=== PATIENT | female | born 1990 | race Caucasian/White ===

== ENCOUNTER 2018-03-13 16:04 | Emergency (ER) | payer BC, OTHER ==
[~2018-03-13 16:04] MED LIST: Iopamidol 370 76% 100 ML VIAL ONE
[2018-03-13] MEDS ORDERED: Morphine 5 MG/ML SYRINGE ONE ×3 (16:22→17:58)
[2018-03-13] MEDS ORDERED: Ondansetron HCl/PF 4 MG/2 ML Vial ONE (16:23)
[2018-03-13 16:35] LABS: BHCG - Serum Negative (NEGATIVE); Pregs Control Background? CLEAR/WHITE (CLR/WHITE); Pregs Control Bar Appear? YES (CONTROL BAR)
[2018-03-13 16:43] LABS: ALT (SGPT) 15 U/L (8-55); AST (SGOT) 21 U/L (5-34); Albumin 4.8 g/dL (3.5-5.0); Alkaline Phosphatase 64 U/L (40-150); Anion Gap 18 mmol/L (10-20); BUN (Urea Nitrogen) 11 mg/dL (7.0-18.7); Calc. Creatinine Clearance 0 mL/min (70-130); Calcium 9.8 mg/dL (7.8-10.44); Carbon Dioxide 21 mmol/L (22-29); Chloride 104 mmol/L (98-107); Estimated GFR-MDRD Greater than 90; Globulin 3.7 g/dL (2.4-3.5); Glucose 122 mg/dL (70-105); Lipase 10 U/L (8-78); Potassium 3.9 mmol/L (3.5-5.1); Protein, Total 8.5 g/dL (6.0-8.3); Sodium 139 mmol/L (136-145)
[2018-03-13 16:52] LABS: #Basophils 0.1 thou/uL (0.0-0.2); #Lymphocytes 0.2 thou/uL (1.20-3.40); #Monocytes 0.3 thou/uL (0.11-0.59); #Neutrophils 11.5 thou/uL (1.40-6.50); %Basophils 0.5 % (0.0-1.0); %Lymphocytes 1.6 % (21.0-51.0); %Monocytes 2.2 % (0.0-10.0); %Neutrophils 95.7 % (42.0-75.0); Hemoglobin 16.6 g/dL (12.0-16.0); Mean Corpuscular HGB CONC 36.7 g/dL (32.0-36.0); Mean Corpuscular Hemoglobin 31.7 pg (27.0-31.0); Mean Corpuscular Volume 86.2 fl (81.0-99.0); Mean Platelet Volume 7.1 fL (7.4-10.4); Platelet Count 198 thou/uL (130-400); RBC Distribution Width 10.3 % (11.5-14.5); Red Blood Cell (RBC) Count 5.25 mill/uL (4.20-5.40); White Blood Cell (WBC) Count 12.1 thou/uL (4.8-10.8)
--- NOTE | 2018-03-13 17:35 | CT ---
CT ABDOMEN AND PELVIS CONTRAST ENHANCED 03/13/18 HISTORY: 27-year-old presents with a history of vomiting since 7:30 this morning. Multiple rounds of diarrhea. Complaining of abdominal pain. Contrast enhanced CT images of the abdomen and pelvis is obtained after administration of IV contrast . Unfortunately oral contrast was not given. This does decrease the sensitivity for detection of path ology. The lung bases are unremarkable. No evidence of free intraperitoneal air seen. The liver, spleen, gallbladder, pancreas, adrenal glands and kidneys are unremarkable. The loops of small bowel are unremarkable. A normal ileocecal valve is visualized. The colon is unrem arkable. A normal appendix is thought to be visualized. S-shaped thoracolumbar scoliosis is seen. There is a large right ovarian cyst or cystic lesion. Three dimensional measurements measuring 4.8 x 3.2 x 4.8 cm. A normal left ovary is seen. The uterus is unremarkable. IMPRESSION: 1. Enlarged right ovarian cyst or cystic lesion. 2. No definite dilated loops of small bowel or colon seen. 3. S-shaped scoliosis of the thoracolumbar spine. POS: [facility]
== END 2018-03-13 18:34 | disposition home or self-care (01) ==
LOC: SCSER 16:04
DX: A09 Infectious gastroenteritis and colitis, unspecified (principal); R11.2 Nausea with vomiting, unspecified
CPT/HCPCS: 74177; 80053; 83690; 84703; 85025; 96361; 96374; 96375; 96376; J2270; J2405

== ENCOUNTER 2019-06-27 21:41 | Day surgery (SDC) | payer OTHER ==
[2019-06-27 22:35] VITALS: BMI 29.5
[2019-06-27] MEDS ORDERED: hydrALAZINE 20 MG/ML VIAL SLOW IVP PRN (23:10)
[2019-06-27 23:57] LABS: Amnisure Test No Membranes Rupture (No Rupture)
[2019-06-27 23:59] LABS: Amnisure Internal Control QC ACCEPTABLE (ACCEPTABLE)
--- NOTE | 2019-06-28 07:36 | SS ---
DATE OF ADMISSION: 06/27/2019 DATE OF DISCHARGE: 06/28/2019 REGULAR PHYSICIAN: Stephen Chavez MD EVALUATING PHYSICIAN: Sae Martinez MD CHIEF COMPLAINT: Leakage of fluid at home, decreased movement. HISTORY OF PRESENT ILLNESS: Ms. Jones is a 28-year-old white G2, P1, with an estimated date of confinement of 08/02/2019, who presents complaining of suspected loss of fluid since earlier today. She also states that she has noted decreased movement. She denies vaginal bleeding. Her care has been with Dr. Chavez, has been without complications. PAST OBSTETRICAL HISTORY: Includes one vaginal delivery at 35 weeks. PAST MEDICAL HISTORY: None. PAST SURGICAL HISTORY: [place] teeth extraction. CURRENT MEDICATIONS: vitamins. ALLERGIES: TO ZITHROMAX, WHICH SHE STATES GIVES HER EXTREME NAUSEA AND VOMITING. SOCIAL HISTORY: Denies tobacco or alcohol use. REVIEW OF SYSTEMS: Denies nausea, vomiting, fever, chills, vaginal bleeding. PHYSICAL EXAMINATION: VITAL SIGNS: Stable and she is afebrile. ABDOMEN: Soft and nontender. heart rate tracing is very reassuring with spontaneous accelerations and good qtuf-[id number]-kzyh variability. No significant contractions are seen. During her time in Labor and Delivery, she reports active movement. AmniSure is obtained and it returns negative. Pelvic exam by labor nurse shows the cervix to be closed and long. ASSESSMENT: 1. A 35-week intrauterine . 2. No evidence of ruptured membranes. 3. Reassuring monitoring tonight in triage. PLAN: The patient will be dismissed to home with precautions. She was urged to use kick counts at home. She states she has an appointment with Dr. Chavez later this week. Job ID: [id number]
== END 2019-06-28 00:34 | disposition home or self-care (01) ==
LOC: L&D/OP 21:41
PROVIDERS: ATTEND Pediatrics
DX: O36.8130 Decreased fetal movements, third trimester, not applicable or unspecified (principal); O99.89 Other specified diseases and conditions complicating pregnancy, childbirth and the puerperium; N89.8 Other specified noninflammatory disorders of vagina; Z3A.35 35 weeks gestation of pregnancy; Z88.1 Allergy status to other antibiotic agents
CPT/HCPCS: 84112

== ENCOUNTER 2019-07-04 14:14 | Day surgery (SDC) | payer OTHER ==
[2019-07-04 14:50] VITALS: BP 117/70; TEMP 98.1
[2019-07-04 14:51] VITALS: BMI 29.7
[2019-07-04] MEDS ORDERED: hydrALAZINE 20 MG/ML VIAL SLOW IVP PRN (15:24)
--- NOTE | 2019-07-04 16:22 | ULT ---
Limited obstetrical ultrasound: 07/04/2019 COMPARISON: None HISTORY: 28-year-old female undergoing limited assessment FINDINGS: A single intrauterine gestation is present. Vertex presentation noted. heart rate 168 bpm. Placenta is located anteriorly. No evidence for previa or abruption. Amniotic fluid index is 10.2 cm. Cervical length is estimated at 3.8 cm. biometry: BPD 9.1 cm 37 weeks 0 days Head circumference 31.7 cm 35 weeks 4 days Abdominal circumference 31.2 cm 35 weeks 1 days Femur length 6.8 cm 34 weeks 5 days Average age based on ultrasound is 35 weeks 0 days. Estimated date of delivery is 08/08/2019. Average age based on ultrasound is 2629 g +/- 389 g. anatomy is not assessed on this examination. IMPRESSION: Single intrauterine gestation as detailed above. anatomy was not assessed on this e xamination.
--- NOTE | 2019-07-05 07:56 | SS ---
DATE OF ADMISSION: 07/04/2019 DATE OF DISCHARGE: 07/04/2019 REGULAR PHYSICIAN: Stephen Chavez MD EVALUATING PHYSICIAN: Sae Martinez MD. CHIEF COMPLAINT: Bleeding at home. HISTORY OF PRESENT ILLNESS: Ms. Jones is a 28-year-old white G2, P1, with an estimated date of confinement of 08/02/2019, who presents complaining of vaginal bleeding at home at approximately 12:30 pm this afternoon. She does relate that it was related to a bowel movement. She denies leakage of fluid or significant uterine contractions. She reports active movement throughout. Her care has been with Dr. Chavez and has been complicated only by gestational diabetes for which she is treated only with diet. PAST OBSTETRICAL HISTORY: Includes one vaginal delivery at 35 weeks. PAST MEDICAL HISTORY: Gestational diabetes as above. PAST SURGICAL HISTORY: None. CURRENT MEDICATIONS: vitamins. ALLERGIES: ZITHROMAX, WHICH SHE STATES GIVES HER NAUSEA AND VOMITING. SOCIAL HISTORY: Denies tobacco, alcohol, or drug use. FAMILY HISTORY: Unremarkable. REVIEW OF SYSTEMS: Denies nausea, vomiting, fever, chills, ruptured membranes, or decreased movement. PHYSICAL EXAMINATION: VITAL SIGNS: Stable and she is afebrile in triage. GENERAL: She is in no acute distress. ABDOMEN: Soft, nontender, and gravid. heart rate tracing is stable. Only an occasional contraction is seen. Ultrasound shows biometry consistent with a vertex. There is no evidence of placenta previa. Adequate amniotic fluid is seen and the cervix is uneffaced. Sterile speculum exam shows no blood in the vagina. Bimanual pelvic exam shows the cervix to be long and closed and confirms there to be no blood in the vagina. ASSESSMENT: 1. A 35 and 6/7th week intrauterine . 2. No evidence of third trimester bleeding, bleeding more likely from a small hemorrhoid noted on exam. PLAN: The patient was dismissed to home with precautions. She was told to use local care as well as Preparation-H for her hemorrhoids. She voiced understanding of her discharge instructions and was sent home in good condition. Dr. Chavez was notified. Job ID: [id number]
== END 2019-07-04 17:10 ==
LOC: L&D/OP 14:14
PROVIDERS: ATTEND Obstetrics & Gynecology
DX: O46.93 Antepartum hemorrhage, unspecified, third trimester (principal); O24.419 Gestational diabetes mellitus in pregnancy, unspecified control; Z3A.35 35 weeks gestation of pregnancy; Z88.1 Allergy status to other antibiotic agents
CPT/HCPCS: 76815

== ENCOUNTER 2019-07-10 22:27 | Day surgery (SDC) | payer OTHER ==
[2019-07-10 22:51] VITALS: BMI 29.9
--- NOTE | 2019-07-10 23:14 | PDOC.LDHP ---
Labor and Delivery H&P Chief complaint: contractions HPI: 28 y/o at 36w5d presents with ctx every few minutes tonight. Denies VB , LOF, or decreased FM. ROS neg for HEENT, CV, pulm, GI, , neuro, psych, skin, musculoskeletal, or constitutional symptoms other than mentioned above. OB: Dr. Chavez OB History Details: 1 prior at 35 weeks Current complications: gestational diabetes (A1) Past Medical History: None Current medications: pre-eddie vitamins Previous surgical history: none Allergies/Adverse Reactions: Allergies Allergy/AdvReac Type Severity Reaction Status Date / Time azithromycin Allergy Mild Nausea Verified 07/10/19 22:51 erythromycin base Allergy Mild Nausea Verified 07/10/19 22:51 Social history: none - Physical Exam Vital signs reviewed and normal: yes General: NAD, resting Lungs: nonlabored breathing Abdomen: gravid Extremeties: no edema FHT: category 1 (130s, mod variability, + accels, no decels) Ryder contractions every: irregular, irritability - Vaginal Exam cm dilated: 1 Effacement: 0% Station: -2 - Assessment 28 y/o at 36w5d with no e/o active labor. status reassuring with reactive NST. - Plan -: D/c home with precautions. Advised to keep all appointments.
== END 2019-07-11 01:05 | disposition home or self-care (01) ==
LOC: L&D/OP 22:27
PROVIDERS: ATTEND Obstetrics & Gynecology
DX: O47.03 False labor before 37 completed weeks of gestation, third trimester (principal); O24.419 Gestational diabetes mellitus in pregnancy, unspecified control; Z3A.36 36 weeks gestation of pregnancy; Z88.1 Allergy status to other antibiotic agents
CPT/HCPCS: 99283

== ENCOUNTER 2019-07-18 18:00 | Inpatient (IN) | payer OTHER ==
[~2019-07-18 18:00] MED LIST changes: -Iopamidol 370 76% 100 ML VIAL ONE; +ePHEDrine/0.9% NaCl/PF SYRINGE 50 mg/10 ml ONE
[2019-07-18] MEDS: Lactated Ringer's 1,000 ML IV SCH (19:25)
[2019-07-18] MEDS ORDERED: Acetaminophen 500 MG TAB PO PRN (19:30)
[2019-07-18] MEDS ORDERED: Lidocaine 1% (PF) 30 ML VIAL SC PRN (19:30)
[2019-07-18] MEDS ORDERED: Ibuprofen 800 MG TAB PO PRN (19:30)
[2019-07-18] MEDS ORDERED: Methylergonovine 0.2 MG/ML VIAL IM PRN (19:30)
[2019-07-18] MEDS ORDERED: Diphenoxylate HCl/Atropine Tablet PO PRN ×2 (19:30)
[2019-07-18] MEDS ORDERED: Zolpidem Tartrate 5 MG TAB PO PRN (19:30)
[2019-07-18] MEDS ORDERED: Misoprostol 200 MCG TAB PR PRN (19:30)
[2019-07-18] MEDS ORDERED: NS w/ Oxytocin 10 units 500 ML IV SCH (19:30)
[2019-07-18] MEDS ORDERED: NS / Oxytocin 40 units/1000ml 1,000 ML IV PRN (19:30)
[2019-07-18] MEDS ORDERED: hydrALAZINE 20 MG/ML VIAL SLOW IVP PRN (19:30)
[2019-07-18] MEDS ORDERED: Ondansetron PF 4 MG/2 ML Vial IVP PRN (19:30)
[2019-07-18] MEDS ORDERED: Promethazine HCl 25 MG/ML VIAL IM PRN (19:30)
[2019-07-18] MEDS ORDERED: Carboprost 250 MCG/ML AMP IM PRN (19:30)
[2019-07-18] MEDS ORDERED: HYDROcodone/Acetaminophen 5/325 mg Tablet PO PRN ×2 (19:30)
--- NOTE | 2019-07-18 19:35 | PDOC.LDHP ---
Labor and Delivery H&P HPI: 28 y/o at 38 weeks (after midnight) presents for term medical induction of labor for GDM. Current gestational age (weeks): 38 Due date: 08/02/19 Grav: 2 Para: 1 Current complications: gestational diabetes Abnormal US findings: No Current medications: pre-eddie vitamins Previous surgical history: none Allergies/Adverse Reactions: Allergies Allergy/AdvReac Type Severity Reaction Status Date / Time azithromycin Allergy Mild Nausea Verified 07/18/19 19:32 erythromycin base Allergy Mild Nausea Verified 07/18/19 19:32 Social history: none - Physical Exam General: NAD, resting Heart: RRR Lungs: CTAB Abdomen: gravid Extremeties: no edema FHT: category 1 - Assessment L&D Assessment: medically indicated induction - Plan Plan: admit to L&D, cervical ripening
[2019-07-18 19:38] VITALS: BMI 30.1
[2019-07-18 19:54] LABS: Hemoglobin 10.8 g/dL (12.0-16.0); Mean Corpuscular HGB CONC 35.5 g/dL (32.0-36.0); Mean Corpuscular Hemoglobin 30.1 pg (27.0-31.0); Mean Corpuscular Volume 84.8 fL (78.0-98.0); Mean Platelet Volume 6.7 fL (7.4-10.4); Platelet Count 186 thou/uL (130-400); Red Blood Cell (RBC) Count 3.59 mill/uL (4.20-5.40)
[2019-07-18] MEDS: Misoprostol 100 MCG TAB VAG SCH ×2 (20:13→23:56)
[2019-07-18 20:34] LABS: HBSAg Index 0.19 S/CO (0-0.99); Hep B Surf Ag Non-Reactive S/CO (NonReactive); Syphilis Antibody Nonreactive (Nonreactive); Syphilis Antibody Index 0.07 S/CO (<1.00 Non-Reactive)
[2019-07-19] MEDS: Butorphanol Tartrate 1 MG/ML VIAL SLOW IVP PRN ×3 (00:01→06:16)
[2019-07-19] MEDS: Lactated Ringer's 1,000 ML IV SCH ×3 (01:08→13:54)
[2019-07-19] MEDS: NS w/ Oxytocin 10 units 500 ML IV SCH (06:04)
[2019-07-19] MEDS: Misoprostol 100 MCG TAB VAG SCH ×4 (06:04→12:53)
[2019-07-19] MEDS ORDERED: Fentanyl 4 mcg/Bup 0.1% Cadd 100 ML ONE ×2 (07:31→14:45)
[2019-07-19] MEDS ORDERED: Promethazine HCl 25 MG/ML VIAL IM PRN ×2 (08:19→21:20)
[2019-07-19] MEDS ORDERED: Ondansetron PF 4 MG/2 ML Vial IVP PRN ×2 (08:19→21:20)
[2019-07-19] MEDS ORDERED: ePHEDrine/0.9% NaCl/PF SYRINGE 50 mg/10 ml SLOW IVP PRN (08:19)
[2019-07-19] MEDS ORDERED: Lactated Ringer's 500 ML IV PRN (08:19)
[2019-07-19] MEDS ORDERED: diphenhydrAMINE 50 MG/ML VIAL IVP PRN (08:19)
[2019-07-19] MEDS ORDERED: Acetaminophen 325 MG TAB PO PRN (08:19)
[2019-07-19] MEDS ORDERED: Naloxone HCl 0.4 mg/ml Vial IVP PRN ×2 (08:19)
[2019-07-19] MEDS ORDERED: Communication Order-Pharmacy FS SCH (08:30)
[2019-07-19] MEDS ORDERED: Fentanyl 4 mcg/Bupivacaine 0.1% Cassette 100 ML EPIDURAL SCH (08:30)
[2019-07-19] MEDS ORDERED: diphenhydrAMINE 25 MG CAP PO PRN (21:20)
[2019-07-19] MEDS ORDERED: Bisacodyl 10 MG SUPP PR PRN (21:20)
[2019-07-19] MEDS ORDERED: HYDROcodone/Acetaminophen 5/325 mg Tablet PO PRN (21:20)
[2019-07-19] MEDS ORDERED: Zolpidem Tartrate 5 MG TAB PO PRN (21:20)
[2019-07-19] MEDS ORDERED: Lanolin Ointment 7 GM TUBE TOP PRN (21:20)
[2019-07-19] MEDS ORDERED: Misoprostol 200 MCG TAB VAG PRN (21:20)
[2019-07-19] MEDS ORDERED: Milk Of Magnesia 30 ML UDCUP PO PRN (21:20)
[2019-07-19] MEDS ORDERED: Methylergonovine 0.2 MG/ML VIAL IM PRN (21:20)
[2019-07-19] MEDS ORDERED: hydrALAZINE 20 MG/ML VIAL SLOW IVP PRN (21:20)
[2019-07-19] MEDS ORDERED: NS / Oxytocin 40 units/1000ml 1,000 ML IV SCH (21:20)
[2019-07-19] MEDS ORDERED: Benzocaine-Menthol 82.5 ML CAN TOP PRN (21:20)
[2019-07-19] MEDS ORDERED: Preparation H Ointment 28 GM TUBE PR PRN (21:20)
[2019-07-19] MEDS: Docusate Calcium (SURFAK) 240 MG CAP PO SCH (23:15)
[2019-07-19] MEDS: Ibuprofen 800 MG TAB PO SCH (23:19)
[2019-07-20] MEDS: HYDROcodone/Acetaminophen 5/325 mg Tablet PO PRN ×3 (00:12→20:39)
[2019-07-20 05:25] LABS: Hemoglobin 10.9 g/dL (12.0-16.0); Mean Corpuscular HGB CONC 35.1 g/dL (32.0-36.0); Mean Corpuscular Hemoglobin 30.5 pg (27.0-31.0); Mean Corpuscular Volume 86.7 fL (78.0-98.0); Mean Platelet Volume 6.8 fL (7.4-10.4); Platelet Count 151 thou/uL (130-400); Red Blood Cell (RBC) Count 3.58 mill/uL (4.20-5.40); White Blood Cell (WBC) Count 14.9 thou/uL (4.8-10.8)
[2019-07-20] MEDS: Ibuprofen 800 MG TAB PO SCH ×3 (05:28→21:35)
[2019-07-20] MEDS: Ferrous Sulfate 325 MG TAB PO SCH ×2 (07:36→17:30)
[2019-07-20] MEDS: Misoprostol 100 MCG TAB VAG SCH ×2 (07:40→07:41)
[2019-07-20] MEDS: NS w/ Oxytocin 10 units 500 ML IV SCH (07:41)
[2019-07-20] MEDS: Docusate Calcium (SURFAK) 240 MG CAP PO SCH (08:56)
[2019-07-20] MEDS ORDERED: Adacel (T-DAP) 0.5 ML SYRINGE IM ONE (09:00)
[2019-07-20] MEDS ORDERED: Varicella virus, LIVE 0.5 ML VIAL SC ONE (09:00)
[2019-07-20] MEDS ORDERED: Measles/Mumps/Rubella 10 MCG/0.5 ML VIAL SC ONE (09:00)
[2019-07-20] MEDS ORDERED: Diphenoxylate HCl/Atropine Tablet PO PRN ×2 (22:24→22:27)
--- NOTE | 2019-07-20 23:22 | DN ---
DATE OF PROCEDURE: 07/19/2019 TIME OF SERVICE: At 1917 hours, [place] Daylight Savings Time. PREOPERATIVE DIAGNOSES: 1. Gestational diabetes. 2. Non-reassuring NST/ testing in the clinic. 3. Poor availability of home blood sugars as reported by the patient. POSTOPERATIVE DIAGNOSES: 1. Gestational diabetes. 2. Non-reassuring NST/ testing in the clinic. 3. Poor availability of home blood sugars as reported by the patient. PROCEDURE PERFORMED: Spontaneous vaginal delivery over intact perineum. FINDINGS: Viable female infant weighing 2737 g or 6 pounds 1 ounce, Apgars 8 and 9. QUANTITATIVE BLOOD LOSS: 60 mL. COMPLICATIONS: None. PROCEDURE IN DETAIL: The patient presented to [facility] where she was admitted to the labor and delivery service. The patient underwent a normal and uneventful labor with normal cervical dilatation until she was found to be completely dilated. She was then allowed to push and was able to bring the baby down and delivered the baby in a vertex presentation without difficulties. Once the head delivered in occiput anterior position, the shoulders followed spontaneously along with the rest of the baby's body. Once out the baby's mouth and nose were bulb suctioned. The cord was clamped and cut and baby was handed to waiting attendants. Cord blood was collected. Gentle fundal massage was performed and the placenta delivered intact without problems. Hemostasis was assured. Quantitative blood loss was calculated. Inspection of the cervix, vaginal vault, and perineum did not reveal any lacerations needing suturing. Once again, hemostasis was within normal limits and the patient was allowed to recover in the labor and delivery room. Baby went to nursery. Job ID: [id number]
[2019-07-21] MEDS: Docusate Calcium (SURFAK) 240 MG CAP PO SCH ×2 (01:29→09:50)
[2019-07-21] MEDS: Ibuprofen 800 MG TAB PO SCH ×3 (06:38→17:06)
[2019-07-21] MEDS: Ferrous Sulfate 325 MG TAB PO SCH ×2 (07:45→15:18)
[2019-07-21 21:52] VITALS: BP 124/73; TEMP 98
== END 2019-07-21 20:50 | disposition home or self-care (01) | DRG 807 ==
LOC: L&D 18:35 → 3SW 07-19 23:09
PROVIDERS: ADMIT Obstetrics & Gynecology; ATTEND Obstetrics & Gynecology
PROC: 10E0XZZ Delivery of Products of Conception, External Approach (ICD-10-PCS; principal; 2019-07-19)
PROC: 3E033VJ Introduction of Other Hormone into Peripheral Vein, Percutaneous Approach (ICD-10-PCS; 2019-07-19)
DX: O24.429 Gestational diabetes mellitus in childbirth, unspecified control (principal); Z37.0 Single live birth; O76 Abnormality in fetal heart rate and rhythm complicating labor and delivery; Z3A.38 38 weeks gestation of pregnancy
CPT/HCPCS: 36415; 51702; 85027; 86780; 86850; 86900; 86901; 87340; J0595; J2405; J2590